=== PATIENT | female | born 2000 | race Two or more races ===

== ENCOUNTER 2019-06-19 21:54 | Emergency (ER) | payer MEDICAID ==
[~2019-06-19] VITALS: Ht 149.9 cm; Wt 59.0 kg
[2019-06-19 23:33] VITALS: BP 108/69
== END 2019-06-20 00:56 | disposition home or self-care (01) ==
LOC: ER 21:56
DX: H10.9 Unspecified conjunctivitis (principal); J45.909 Unspecified asthma, uncomplicated

== ENCOUNTER 2025-04-22 10:33 | Outpatient (CLI) | payer OTHER | END 2025-04-22 17:00 | disposition home or self-care (01) | LOC: LAB 10:33 | PROVIDERS: ATTEND Anesthesiology | DX: Z01.84 Encounter for antibody response examination (principal) | CPT/HCPCS: 36415; 86706; 86735; 86762; 86765; 86787 ==